=== PATIENT | male | born 1945 | race Caucasian/White ===

== ENCOUNTER 2022-08-13 13:56 | Emergency (ER) | payer MEDICARE, OTHER ==
[2022-08-13 14:05] VITALS: BP 139/73; PULSE 82
[2022-08-13] MEDS ORDERED: Sodium Chloride 0.9% 10 ML Syringe FLUSH PRN (14:22)
[2022-08-13 15:20] LABS: BASOPHILS ABSOLUTE AUTO 0.06 K/mm3 (0.01-0.08); BASOPHILS PERCENT AUTO 0.7 % (0.1-1.2); EOSINOPHILS PERCENT AUTO 3.4 (0.8-7.0); HEMOGLOBIN 12.9 gm/dl (13.7-17.5); IMMATURE GRAN ABSOLUTE AUTO 0.01 K/mm3 (0.00-0.10); IMMATURE GRAN PERCENT AUTO 0.1 % (<=1.0); LYMPHOCYTES ABSOLUTE AUTO 1.85 K/mm3 (1.32-3.57); LYMPHOCYTES PERCENT AUTO 20.9 % (21.8-53.1); MEAN CORPUSCULAR HEMOGLOBIN 30.8 pg (25.7-32.2); MEAN CORPUSCULAR HGB CONC 33.1 g/dl (32.2-35.5); MEAN CORPUSCULAR VOLUME 93.1 fl (79.0-92.2); MEAN PLATELET VOLUME 10.7 fl (9.4-12.3); MONOCYTES ABSOLUTE AUTO 0.69 K/mm3 (0.30-0.82); MONOCYTES PERCENT AUTO 7.8 % (5.3-12.2); NEUTROPHILS ABSOLUTE AUTO 5.95 K/mm3 (1.78-5.38); NEUTROPHILS PERCENT AUTO 67.1 % (34.0-67.9); PLATELET COUNT,PLT 162 K/mm3 (163-337); RED BLOOD CELL COUNT 4.19 M/mm3 (4.63-6.08); WHITE BLOOD CELL COUNT,WBC 8.86 K/mm3 (4.23-9.07)
[2022-08-13 15:36] LABS: INR 1.01; PROTHROMBIN TIME 10.8 SECONDS (9.7-12.0)
[2022-08-13 15:48] LABS: PTT,PARTIAL THROMBOPLSTIN TIME 28.4 SECONDS (21.7-31.4)
[2022-08-13 15:53] LABS: A/G RATIO 0.9 (1-2); ALANINE AMINOTRANSFERASE,ALT 33 U/L (16-63); ALBUMIN 3.5 g/dl (3.4-5.0); ALKALINE PHOSPHATASE 121 U/L (46-116); ANION GAP 9.7 (5-15); ASPARTATE AMNIOTRANSFERASE,AST 25 U/L (15-37); BILIRUBIN TOTAL 0.9 mg/dL (0.2-1.0); BLOOD UREA NITROGEN,BUN 18 mg/dL (7-18); BUN/CREATININE RATIO 11.3 (14-18); C-REACTIVE PROTEIN <0.2 mg/dL (<1.0); CALCIUM 9.2 mg/dL (8.5-10.1); CARBON DIOXIDE,CO2 29 mEq/L (21-32); CHLORIDE,CL 106 mEq/L (98-107); CREATINE KINASE,CK 67 U/L (39-308); CREATININE 1.6 mg/dL (0.7-1.3); ESTIMATED GFR 45 mL/min (>60); GLUCOSE RANDOM 149 mg/dL (70-99); POTASSIUM,K 3.7 mEq/L (3.5-5.1); PROTEIN TOTAL,TP 7.4 g/dl (6.4-8.2); SODIUM,NA 141 mEq/L (136-145); TROPONIN I HIGH SENSITIVITY 6 pg/mL (<=76); TSH 1.488 uIU/mL (0.358-3.74)
[2022-08-13 15:58] LABS: D-DIMER QUANTITATIVE 4.47 mg/L (0.19-0.50)
== END 2022-08-13 17:45 | disposition home or self-care (01) ==
LOC: JD.ED 13:56
DX: H53.8 Other visual disturbances (principal); R79.1 Abnormal coagulation profile; E66.9 Obesity, unspecified; I25.10 Atherosclerotic heart disease of native coronary artery without angina pectoris; I10 Essential (primary) hypertension; E78.00 Pure hypercholesterolemia, unspecified; J45.909 Unspecified asthma, uncomplicated; Z86.73 Personal history of transient ischemic attack (TIA), and cerebral infarction without residual deficits; Z79.82 Long term (current) use of aspirin; Z79.899 Other long term (current) drug therapy; Z79.02 Long term (current) use of antithrombotics/antiplatelets; Z88.8 Allergy status to other drugs, medicaments and biological substances; Z68.41 Body mass index [BMI] 40.0-44.9, adult; Z88.5 Allergy status to narcotic agent; Z91.040 Latex allergy status; Z91.018 Allergy to other foods; Z85.51 Personal history of malignant neoplasm of bladder
CPT/HCPCS: 36415; 70551; 71045; 80053; 80307; 82550; 83605; 83735; 83880; 84443; 84484; 85025; 85379; 85610; 85652; 85730; 86140; 93005; 99285; J3490

== ENCOUNTER 2024-01-06 15:52 | Emergency (ER) | payer MEDICARE, OTHER ==
[2024-01-06 16:49] LABS: BASOPHILS ABSOLUTE AUTO 0.1 K/mm3 (0.0-0.2); BASOPHILS PERCENT AUTO 1.2 % (0.0-1.0); EOSINOPHILS ABSOLUTE AUTO 0.3 K/mm3 (0.0-0.4); EOSINOPHILS PERCENT AUTO 4.8 % (0.0-6.0); IMMATURE GRAN ABSOLUTE AUTO 0.01 K/mm3 (0.00-0.05); IMMATURE GRAN PERCENT AUTO 0.1 % (0.0-0.4); LYMPHOCYTES ABSOLUTE AUTO 1.6 K/mm3 (1.0-4.8); LYMPHOCYTES PERCENT AUTO 24.3 % (24.0-44.0); MEAN CORPUSCULAR HEMOGLOBIN 30.7 pg (28.0-32.0); MEAN CORPUSCULAR HGB CONC 33.3 g/dl (32.0-36.0); MEAN CORPUSCULAR VOLUME 92.1 fl (83.0-99.0); MEAN PLATELET VOLUME 11.2 fl (9.4-12.4); MONOCYTES ABSOLUTE AUTO 0.6 K/mm3 (0.0-0.8); MONOCYTES PERCENT AUTO 8.3 % (0.0-8.0); NEUTROPHILS ABSOLUTE AUTO 4.1 K/mm3 (1.8-7.7); NEUTROPHILS PERCENT AUTO 61.3 % (41.0-71.0); PLATELET COUNT,PLT 167 K/mm3 (150-400); RED BLOOD CELL COUNT 3.91 M/mm3 (4.52-5.90); WHITE BLOOD CELL COUNT,WBC 6.72 K/mm3 (3.9-11.3)
[2024-01-06] MEDS: HYDROmorphone 0.5 MG/0.5 ML Syringe IVPUSH ONE (16:56)
[2024-01-06] MEDS: Sodium Chloride 0.9% 10 ML Syringe FLUSH PRN (16:59)
[2024-01-06 17:09] LABS: A/G RATIO 1.1 (1-2); ALBUMIN 3.5 g/dl (3.4-5.0); ANION GAP 11.5 (5-15); BILIRUBIN TOTAL 0.5 mg/dL (0.2-1.0); C-REACTIVE PROTEIN 0.31 mg/dL (<0.30); CALCIUM 9.1 mg/dL (8.5-10.1); CREATININE 2.5 mg/dL (0.7-1.3); EST CRCL DRUG DOSING (CG) 21.87 mL/min; POTASSIUM,K 3.5 mEq/L (3.5-5.1); PROTEIN TOTAL,TP 6.8 g/dl (6.4-8.2)
[2024-01-06] MEDS: Lactated Ringers 1,000 ML IV ONE (18:33)
[2024-01-06 18:42] LABS: APPEARANCE,URINE CLEAR (Clear); BILIRUBIN,URINE NEGATIVE (Negative); COLOR,URINE LIGHT YELLOW (Yellow); GLUCOSE,URINE 3+ (Negative); KETONES,URINE NEGATIVE (Negative); LEUKOCYTE ESTERASE,URINE NEGATIVE (Negative); NITRITE,URINE NEGATIVE (Negative); OCCULT BLOOD,URINE NEGATIVE (Negative); PROTEIN,URINE NEGATIVE (Negative); UROBILINOGEN,URINE 0.2 (0.2-1.0)
[2024-01-06 19:45] VITALS: BP 133/71; PULSE 66
[2024-01-07 05:06] LABS: BACTERIA,URINE RARE /hpf (FEW); EPITHELIAL CELLS,URINE NOT SEEN /hpf (0-5); MUCUS,URINE NOT SEEN /hpf (FEW); RBC,URINE 0-5 /hpf (0-5); WBC,URINE 0-5 /hpf (0-5)
== END 2024-01-06 19:42 | disposition home or self-care (01) ==
LOC: JD.ED 15:52
DX: M54.50 Low back pain, unspecified (principal); G89.29 Other chronic pain; N28.9 Disorder of kidney and ureter, unspecified; I25.10 Atherosclerotic heart disease of native coronary artery without angina pectoris; E78.00 Pure hypercholesterolemia, unspecified; I10 Essential (primary) hypertension; J45.909 Unspecified asthma, uncomplicated; Z86.73 Personal history of transient ischemic attack (TIA), and cerebral infarction without residual deficits; E11.9 Type 2 diabetes mellitus without complications; Z79.82 Long term (current) use of aspirin; Z79.899 Other long term (current) drug therapy; Z88.3 Allergy status to other anti-infective agents; Z91.018 Allergy to other foods; Z91.040 Latex allergy status; Z88.8 Allergy status to other drugs, medicaments and biological substances
CPT/HCPCS: 36415; 74176; 80053; 81001; 85025; 86140; 96361; 96374; 99284; J1171; J3490; J7120